=== PATIENT | female | born 1940 | race African-American/Black ===

== ENCOUNTER 2018-08-16 16:17 | Emergency (ER) | payer OTHER ==
[~2018-08-16] VITALS: Ht 165.1 cm; Wt 90.7 kg
[~2018-08-16 16:17] MED LIST: AMLO10TA6 PO; AMLO1CAP12 PO; ASPI-630 PO; ATEN50TA PO; ATOR20TA58 PO; Amoxicillin/Potassium Clav PO; CLOP75TA PO; GLIM1TAB2 PO; HYDR-2762 PO; Hydrocodone/Acetaminophen PO; INSU100I17 SQ; LINA5TAB4 PO; OXYC-323 PO; PANT40TA5 PO
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
[2018-08-16 18:00] VITALS: BP 167/74
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
== END 2018-08-16 19:35 | disposition home or self-care (01) ==
LOC: ER 16:17
DX: S40.011A Contusion of right shoulder, initial encounter (principal); S80.02XA Contusion of left knee, initial encounter; K21.9 Gastro-esophageal reflux disease without esophagitis; E78.00 Pure hypercholesterolemia, unspecified; I10 Essential (primary) hypertension; V49.59XA Passenger injured in collision with other motor vehicles in traffic accident, initial encounter; Y93.89 Activity, other specified; Y92.410 Unspecified street and highway as the place of occurrence of the external cause; Y99.8 Other external cause status
CPT/HCPCS: 73030; 73564; 99284

== ENCOUNTER 2019-03-06 11:35 | Emergency (ER) | payer OTHER ==
[~2019-03-06] VITALS: Ht 157.5 cm; Wt 108.9 kg
[~2019-03-06 11:35] MED LIST changes: -AMLO10TA6 PO; +AMLO10TA8 PO; -HYDR-2762 PO; +HYDR-2765 PO; +LINA5TAB PO; -LINA5TAB4 PO; -OXYC-323 PO; +OXYC1TAB15 PO
[2019-03-06 11:50] VITALS: BP 187/108
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
== END 2019-03-06 12:33 | disposition home or self-care (01) ==
LOC: ER 11:35
DX: M79.5 Residual foreign body in soft tissue (principal); E11.9 Type 2 diabetes mellitus without complications; I25.10 Atherosclerotic heart disease of native coronary artery without angina pectoris
CPT/HCPCS: 99284